=== PATIENT | female | born 1945 | race Caucasian/White ===

== ENCOUNTER 2017-06-10 11:39 | Observation (INO) | payer MEDICARE ==
[~2017-06-10 11:39] MED LIST: ISOVUE-370 76%-LOCM 1 ML ONE
[2017-06-10 12:22] LABS: #Eosinphils 0.1 thou/uL (0.0-0.7); #Monocytes 0.7 thou/uL (0.11-0.59); #Neutrophils 3.2 thou/uL (1.40-6.50); %Basophils 0.9 % (0.0-1.0); %Eosinophils 1.7 % (0.0-10.0); %Lymphocytes 19.7 % (21.0-51.0); %Monocytes 13.5 % (0.0-10.0); Hematocrit 45.6 % (36.0-47.0); Red Blood Cell (RBC) Count 4.38 mill/uL (4.20-5.40)
[2017-06-10 12:47] LABS: ALT (SGPT) 21 U/L (8-55); AST (SGOT) 27 U/L (5-34); Alkaline Phosphatase 88 U/L (40-150); Anion Gap 17 mmol/L (10-20); BUN (Urea Nitrogen) 4 mg/dL (9.8-20.1); Bilirubin, Total 0.6 mg/dL (0.2-1.2); CK (CPK) 46 U/L (29-168); Calc. Creatinine Clearance 0 mL/min (70-130); Calcium 9.7 mg/dL (7.8-10.44); Carbon Dioxide 24 mmol/L (23-31); Chloride 98 mmol/L (98-107); Estimated GFR-MDRD Greater than 90; Globulin 3.7 g/dL (2.4-3.5); Lipase 25 U/L (8-78); Protein, Total 8.1 g/dL (6.0-8.3)
[2017-06-10 12:51] LABS: Troponin I Less than 0.010 ng/mL (< 0.028)
--- NOTE | 2017-06-10 14:10 | RAD ---
AP VIEW CHEST HISTORY: Chest pain. FINDINGS: AP view of the chest obtained on 06/10/2017. Comparison study is not available. AP view chest demonstrates the lungs to be well-aerated. No evidence of active intrathoracic diseas e seen. No evidence of effusions, pneumonia, or pneumothorax seen. IMPRESSION: Unremarkable AP view of the chest. POS: [facility]
--- NOTE | 2017-06-10 14:56 | HP ---
PRIMARY CARE PHYSICIAN: Vero Page M.D. REASON FOR ADMISSION: Chest pain. HISTORY OF PRESENT ILLNESS: A 71-year-old female with a history of tobacco abuse disorder as well as alcohol abuse, who came to emergency room for evaluation of chest pain. Patient reports that this morning around 10 she was watching grandson playing football; at that time, she was experiencing right- sided chest pain; and subsequently that pain moved to left side which was worse with deep breathing and movement. Her intensity of pain was four 4/10. She denies any arm pain. She denies any associated shortness of breath. She denies any dizziness, syncope, or palpitations. She denies any relation of chest pain with activity or food. She denies any burping. She denies any epigastric pain. She denies any trauma. She was feeling sore on her chest when she arrived to emergency room. Patient reports that on she took a flu shot as well as pneumonia shot and Monday, she was feeling flu-like illness with sore all over her body, muscle pain and feverish feeling, but that improved by the end of the day; and today, she experienced these symptoms and she was worried about it and decided to come to the emergency room for evaluation. She denies any fever. She denies any chills. She denies any nausea, vomiting, diaphoresis. She denies any cough. She denies any hemoptysis. She denies any lower extremity cramps or edema or calf tenderness. She denies any UTI symptoms. She denies any constipation, diarrhea, melena or hematochezia. She denies any weight loss. REVIEW OF SYSTEMS: Please see my HPI for particulate positive and negative. All other review of systems reviewed and negative except as mentioned in the HPI. Constitutional: Weight loss or gain, ability to conduct usual activities. Skin: Rash, itching. Eyes: Double vision, pain. ENT/Mouth: Nose bleeding, neck stiffness, pain, tenderness. Cardiovascular: Palpitations, dyspnea on exertion, orthopnea. Respiratory: Shortness of breath, wheezing, cough, hemoptysis, fever or night sweats. Gastrointestinal: Poor appetite, abdominal pain, heartburn, nausea, vomiting, constipation, or diarrhea. Genitourinary: Urgency, frequency, dysuria, nocturia. Musculoskeletal: Pain, swelling. Neurologic/Psychiatric: Anxiety, depression. Allergy/Immunologic: Skin rash, bleeding tendency. PAST MEDICAL HISTORY: History of colon cancer treated with surgery. PAST SURGICAL HISTORY: Colon resection, MediPort placement for chemotherapy. FAMILY HISTORY: Patient's brother from acute dyspnea, but exact etiology was not able to be identified. No family history of cancer, stroke or coronary artery disease. ADDITIONAL INFORMATION: The patient was hypertensive in the emergency room, but she reports that she had a log of blood pressure record at her home and she saw primary care physician and everything was fine. She reports that whenever she goes to doctor, her blood pressure gets high. SOCIAL HISTORY: Patient is smoking about 1 to 1-1/2 pack per day for the last several years. She also drinks 6 beers every day basis. She denies any other illicit drug abuse. She is retired. PAST PSYCHIATRIC HISTORY: Anxiety disorder. CURRENT HOME MEDICATIONS: The patient is only taking aspirin 81 mg p.o. daily. ALLERGIES: No known drug allergies. EMERGENCY ROOM COURSE: Patient has received aspirin 162 mg. PHYSICAL EXAMINATION: VITAL SIGNS: On arrival, blood pressure 188/80, pulse 80, respiratory rate 18, temperature 98.3, saturation 96% on room air, weight 68.04 kilograms. GENERAL: Patient is currently alert, awake, in no obvious acute distress, hypertensive. HEENT: Head, normocephalic, atraumatic. Eyes: Pupils round, reactive to light. Extraocular muscle intact. ENT: Oropharynx within normal limits. Moist mucous membranes. No oral lesions. No pharyngeal erythema. No exudate. NECK: Supple. Range of motion is normal. No meningeal signs of irritation. LUNGS: Clear to auscultation without any rhonchi or rales. CARDIAC: S1, S2 regular without any murmur. ABDOMEN: Soft, bowel sounds present, nontender, nondistended. No organomegaly. No mass. No suprapubic tenderness. BACK: Unremarkable, no CVA tenderness. EXTREMITIES: Upper extremity passive movement of all joints are normal. Lower extremities: No edema. No calf tenderness. SKIN: No skin rash. HEMATOLOGICAL: No lymphadenopathy. NEUROLOGIC: Nonfocal examination. The patient moves all 4 limbs. Plantar bilateral flexor. PSYCHIATRIC: Normal affect. SIGNIFICANT LABS: 1. CBC: WBC 5.0, hemoglobin 15.4, MCV 104, platelet 227,000. D-dimer 0.72. 2. BMP: Sodium 135, potassium 3.7, chloride 98, carbon dioxide 24, BUN 4, creatinine 0.64, glucose 90, calcium 9.7. LFT: AST 27, ALT 21, alkaline phosphatase 88, albumin 4.4, lipase 25, CK 46, CK-MB 0.9, troponin I less than 0.010. EKG based on my review, normal sinus rhythm, premature ventricular complexes. ASSESSMENT AND PLAN: 1. Acute chest pain. Patient has predominantly right and left-sided upper chest wall pain which is little bit pleuritic in nature and she has elevated D- dimer. At this point, we will do CT angio to rule out thromboembolic disorder. We will do serial cardiac enzymes x3. We will check lipid profile for risk stratification as patient has new hypertension and smoking history, we will need to rule out cardiac etiology as well. Tomorrow, we will perform exercise Cardiolite stress test for diagnostic reason. Meanwhile, we will continue with nitropatch q.8 hourly, aspirin 325 mg p.o. daily. We will monitor patient's blood pressure very closely and monitor on telemetry floor. 2. Hypertension. This patient does not have any previous history of hypertension, but currently blood pressure runs high, so we will continue nitropatch q.8 hourly. We will monitor patient's blood pressure while in hospital and if needed before discharge, will consider starting a low dose of antihypertensive medication and follow up with primary care physician. 3. Macrocytosis likely due to alcohol abuse. We will start folic acid, thiamine, and vitamin B12 while in hospital. 4. Tobacco abuse disorder. Smoking cessation counseling given. Healthy lifestyle measures discussed with the patient. We will offer nicotine patch while in hospital if needed. 5. Alcohol abuse. Patient is given counseling to avoid alcohol abuse. We will continue with folic acid and thiamine while in hospital. 6. History of colon cancer, currently under remission. 7. Deep venous thrombosis prophylaxis not needed because we are expecting discharge in 24 hours. 8. Gastrointestinal prophylaxis, Pepcid 20 mg p.o. b.i.d. 9. Code status: The patient is FULL CODE. Patient's is surrogate decision maker. Disposition plan based on clinical course. Plan of care discussed with the patient and family member at bedside. ROSANNA
[2017-06-10] MEDS ORDERED: Acetaminophen 325 MG TAB PO PRN ×2 (15:53→16:09)
[2017-06-10] MEDS ORDERED: Senokot 8.6 MG TAB PO PRN (16:09)
[2017-06-10] MEDS ORDERED: Sodium Chloride 0.65% Nasal 44 ML BOT EA NARE PRN (16:09)
[2017-06-10] MEDS ORDERED: Eucerin (Mineral Oil/Petrolatum,White) 30 gm Jar TOP PRN (16:09)
[2017-06-10] MEDS ORDERED: Loratadine 10 MG TAB PO PRN (16:09)
[2017-06-10] MEDS ORDERED: Mag-Al 1200 mg/1200 mg/30 ML UDCUP PO PRN (16:09)
[2017-06-10] MEDS ORDERED: Milk Of Magnesia 30 ML UDCUP PO PRN (16:09)
[2017-06-10] MEDS ORDERED: HYDROcodone/Acetaminophen 5/325 mg Tablet PO PRN (16:09)
[2017-06-10] MEDS ORDERED: Artificial Tears 18 DROP/0.9 ML EA EYE PRN (16:09)
[2017-06-10] MEDS ORDERED: Zolpidem Tartrate 5 MG TAB PO PRN (16:09)
[2017-06-10] MEDS ORDERED: Nitroglycerin 0.4 MG TAB (25 Tab Bottle) SL PRN (16:09)
[2017-06-10] MEDS ORDERED: Ondansetron ODT 4 MG TAB PO PRN (16:09)
[2017-06-10] MEDS ORDERED: Loperamide HCl 2 MG CAP PO PRN (16:09)
[2017-06-10] MEDS ORDERED: Ondansetron HCl/PF 4 MG/2 ML Vial IVP PRN (16:09)
[2017-06-10] MEDS ORDERED: Diabetic Tussin 200 MG/10 ML UDCUP PO PRN (16:09)
[2017-06-10] MEDS ORDERED: Benzonatate 100 MG CAP PO PRN (16:09)
[2017-06-10 16:12] VITALS: BMI 27.3
[2017-06-10 16:15] LABS: Troponin I Less than 0.010 ng/mL (< 0.028)
--- NOTE | 2017-06-10 16:33 | CT ---
CT PULMONARY ANGIOGRAM 06/10/17 HISTORY: Chest pain. Contrast enhanced CTA of the chest is performed. 2D and 3D reconstructed images performed on an [employer] 3D workstation. The lung parenchyma is unremarkable. Coronary artery calcification is seen. No evidence of mediastin al lymphadenopathy seen. No evidence of significant axillary lymphadenopathy seen. No evidence of ao rtic dissection seen. Calcification of the aorta seen. No evidence of filling defects seen in the pu lmonary arteries to suggest pulmonary emboli. IMPRESSION: Coronary artery calcifications. POS: [facility]
[2017-06-10 18:48] LABS: Troponin I Less than 0.010 ng/mL (< 0.028)
[2017-06-10] MEDS: Nitroglycerin 2% Ointment 1 INCH/1 GM Packet TOP SCH (20:06)
[2017-06-10] MEDS: Famotidine 20 MG TAB PO SCH (20:52)
[2017-06-10] MEDS ORDERED: Nicotine 21 MG PATCH TD SCH (21:00)
[2017-06-11] MEDS: Nitroglycerin 2% Ointment 1 INCH/1 GM Packet TOP SCH ×2 (06:06→12:22)
[2017-06-11] MEDS ORDERED: Aspirin 325 MG TAB PO SCH (09:00)
[2017-06-11] MEDS ORDERED: Folic Acid 1 MG TAB PO SCH (09:00)
[2017-06-11] MEDS ORDERED: Cyanocobalamin (Vitamin B-12) 1,000 MCG TAB PO SCH (09:00)
[2017-06-11] MEDS: Famotidine 20 MG TAB PO SCH (09:03)
[2017-06-11 11:40] VITALS: BP 142/72; TEMP 98.3
--- NOTE | 2017-06-11 13:07 | NM ---
MYOCARDIAL PERFUSION STUDY: DATE: 06/11/17. HISTORY: Chest pain. History of smoking. RADIOPHARMACEUTICALS: 28.4 mCi Technetium 99m sestamibi, IV at stress, and 9,2 mCi Technetium 99m sestamibi, IV at rest. This examination was performed as an exercise stress myocardial perfusion study following the routin e Rashel protocol. Resting heart rate is 69 b.p.m. with maximal heart rate achieved up to 173 b.p.m. This represents 115% of the maximal predictive effective heart rate. FINDINGS: No significant reversible defect is seen between the stress and resting acquisitions. Quantitative analysis also shows no significant reversible defect. The gated images show normal ventricular wall motion and wall thickening. The calculated left ventricular ejection fraction is 75%. IMPRESSION: 1. Normal myocardial perfusion study without evidence of a reversible defect seen to suggest ischem ia. 2. Normal left ventricular function with normal left ventricular ejection fraction of 75%. POS: [facility]
--- NOTE | 2017-06-12 00:08 | DIS ---
DATE OF ADMISSION: 06/10/2017 DATE OF DISCHARGE: 06/11/2017 PRIMARY CARE PHYSICIAN: Dr. Vero Page. DISCHARGE DIAGNOSIS: Chest pain, resolved. CONDITION OF PATIENT AT THE TIME OF DISCHARGE: Stable. I assessed Ms. Muñiz on the day of discharge. She denies any chest pain. PHYSICAL EXAMINATION: VITAL SIGNS: Stable. CARDIOVASCULAR: S1 and S2 are heard, regular. LUNGS: Clear to auscultation bilaterally. HOSPITAL COURSE: Ms. Muñiz is a pleasant 71-year-old lady who was admitted to [facility] for chest pain. She had CT angiogram of the chest, which did not reveal any pulmonary emboli or evidence of aortic dissection. She had calcification of aorta. She also had coronary ar mery calcifications. She had a nuclear stress test on 06/11, which was normal study without evidenc e of reversible defect. She had normal left ventricular function, with left ventricular ejection fr action of 75%. She has been advised to stop tobacco use and to avoid alcohol abuse. She is advised to follow up wi th her primary care physician in 3-5 days. DISCHARGE MEDICATIONS: Include aspirin 81 mg daily, vitamin B12 of 1000 mcg daily, Nicoderm patch 2 1 mg daily, thiamine 100 mg daily. Many thanks for allowing me to participate in your patient's care. Please feel free to contact me w ith any questions or concerns. During this hospitalization, she had triglyceride level 87, cholesterol 175, LDL 118 and HDL 40. On 06/10, she had a sodium of 135, creatinine 0.64, normal potassium, white count 5000, hemoglobin 15. 4 and platelet count 227. MCV was elevated at 104.0. DISCHARGE DESTINATION: Home.
--- NOTE | 2017-06-16 13:45 | STRESS ---
Acquisition Time: 2017-06-11 09:44:16 Total Exercise Time: 00:04:00 Test Indications: CHEST PAIN Medications: Protocol: ROVERTO Max HR: 173 BPM 115% of Pred: 150 BPM Max BP: 166/078 mmHG Max Work Load: 4.6 METS RESTING ECG: NORMAL SINUS RHYTHM AT 69 BPM WITH RARE PVC'S NOTED. SYMPTOMS:NONE NORMAL BP RESPONSE ECTOPY: RARE PVC'S ECG STRESS: 1MM DOWNSLOPING ST DEPRESSION INTERPRETATION: NEGATIVE GXT/ AWAIT NUCLEAR IMAGES FOR DEFINITIVE DIAGNOSIS Confirmed by LACEY WILLOUGHBY M.D. ([id number]) on 06/16/2017 1:44:54 PM Referred By: MD Kirit FIGUEROA Confirmed By:LACEY WILLOUGHBY M.D.
--- NOTE | 2017-06-16 14:54 | EKG ---
Test Reason : Blood Pressure : / mmHG Vent. Rate : 080 BPM Atrial Rate : 080 BPM P-R Int : 122 ms QRS Dur : 074 ms QT Int : 346 ms P-R-T Axes : 048 041 052 degrees QTc Int : 399 ms Sinus rhythm with occasional Premature ventricular complexes Possible Left atrial enlargement Borderline ECG Confirmed by KOKO ANTUNEZ D.O. ([id number]), design editor CHRISTOFER CUEVA ([id number] on 06/16/2017 2:54:47 PM Referred By: Confirmed By:KOKO ANTUNEZ D.O.
== END 2017-06-11 14:56 | disposition home or self-care (01) ==
LOC: ERS 11:39 → 2SW 16:02
PROVIDERS: ADMIT Internal Medicine; ATTEND Internal Medicine
DX: R07.9 Chest pain, unspecified (principal); I25.10 Atherosclerotic heart disease of native coronary artery without angina pectoris; F17.210 Nicotine dependence, cigarettes, uncomplicated; F41.9 Anxiety disorder, unspecified; Z85.038 Personal history of other malignant neoplasm of large intestine; Z90.49 Acquired absence of other specified parts of digestive tract; Z98.890 Other specified postprocedural states; Z79.82 Long term (current) use of aspirin
CPT/HCPCS: 71010; 71275; 78452; 80053; 80061; 82550; 82553; 83690; 84484 ×2; 85025; 85379; 93005; 93017; 99285; A9500; G0378; 36415

== ENCOUNTER 2017-10-31 09:34 | Outpatient (CLI) | payer MEDICARE ==
--- NOTE | 2017-11-13 16:17 | MMO ---
BILATERAL SCREENING MAMMOGRAM: Date: 10/31/17 HISTORY: Screening. COMPARISON: Mammogram from 2015. TECHNIQUE: Bilateral screening CC and MLO mammograms. This patient's mammogram was interpreted with the assistance of computer-aided detection. FINDINGS: There are scattered fibroglandular densities. No suspicious mass, microcalcifications, or architectur al distortion. No significant change. IMPRESSION: BIRADS 1: Negative Continued annual mammographic screening is recommended. POS: [facility]
== END 2017-10-31 09:35 | disposition home or self-care (01) ==
LOC: SCSMAMMO 09:34
PROVIDERS: ATTEND Family Medicine
DX: Z12.31 Encounter for screening mammogram for malignant neoplasm of breast (principal)
CPT/HCPCS: 77067

== ENCOUNTER 2018-12-28 09:02 | Outpatient (CLI) | payer MEDICARE ==
[2018-12-28 09:44] LABS: Estimated GFR-MDRD - POC Greater than 90
--- NOTE | 2018-12-28 10:23 | CT ---
CT CHEST WITH CONTRAST: HISTORY: Lung nodules. Colon cancer. COMPARISON: CT chest 06/10/2017. FINDINGS: Mild centrilobular emphysema. This is greatest in the lung apices. Faint area of ground-glass within the posterior segment left upper lobe confined to the secondary pul monary lobule on axial images 18 and 19 measuring up to 7 mm. No pneumothorax. No effusion. Thyroid is unremarkable. 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 No mediastinal adenopathy. No pericardial effusion. Limited evaluation of the upper abdo men is unremarkable. Visualized portions of the adrenal glands are unremarkable. Visualized portions of the clavicles are normal. No displaced rib fracture. No suspicious osteolyti c or osteoblastic lesions. No spine compression fracture. Focal lucency of left T12 vertebral body with some maintained internal trabeculation, likely hemangio ma as this is unchanged. IMPRESSION: 1. A 7 mm ground-glass nodule posterior segment left upper lobe axial images [address] at 6-12 months is recommended to confirm persistence. 2. No evidence of metastatic disease within the chest. 3. Mild centrilobular emphysema of lung apices. POS: [facility]
[2018-12-28] MEDS ORDERED: Iopamidol 370 76% 100 ML VIAL ONE (15:04)
== END 2018-12-28 09:03 | disposition home or self-care (01) ==
LOC: CT 09:02
PROVIDERS: ATTEND Internal Medicine Hematology & Oncology
DX: C18.7 Malignant neoplasm of sigmoid colon (principal); R91.1 Solitary pulmonary nodule; R63.4 Abnormal weight loss; J43.2 Centrilobular emphysema
CPT/HCPCS: 71260; 82565

== ENCOUNTER 2020-01-10 09:17 | Outpatient (CLI) | payer MEDICARE ==
[2020-01-10 09:43] LABS: Estimated GFR-MDRD - POC Greater than 90
--- NOTE | 2020-01-10 10:12 | CT ---
CT CHEST WITH CONTRAST CLINICAL INDICATION: Malignant neoplasm of sigmoid colon. Follow-up pulmonary nodule. COMPARISON: 12/28/2018 FINDINGS: Aorta: Vascular calcifications are seen in the thoracic aorta with scattered atherosclerotic plaque. Incidental note is again made of an aberrant right subclavian artery. Lungs: Previously seen groundglass nodule abutting the superior aspect of the left major fissure in t he left upper lobe is no longer visualized on this examination. A stable punctate 2 to 3 mm pulmonary nodule is seen in the right lower lobe (image [id number], series 3). No additional discrete pulmona ry nodule or mass is seen in the lungs bilaterally. No pleural effusion is seen. Minimal emphysematous changes are seen in the upper lobes. Mediastinum: No enlarged lymph nodes are seen by CT size criteria. Vascular calcifications are seen i n the coronary arteries. Thyroid gland: Normal CT appearance. Osseous structures: Degenerative changes are seen in the spine. Lucency within the T12 vertebral body is again seen again likely attributable to a hemangioma unchanged dating back to 2016. No new suspicious lytic or sclerotic osseous lesions are seen. Chest wall: No abnormality visualized. Upper abdomen: Within normal limits for phase of imaging. IMPRESSION: 1. No acute findings are seen in the chest. 2. Resolution of the groundglass nodule left upper lobe abutting the major fissure. 3. Mild emphysematous changes.
== END 2020-01-10 09:18 | disposition home or self-care (01) ==
LOC: SCSCT 09:17
PROVIDERS: ATTEND Internal Medicine Hematology & Oncology
DX: C18.7 Malignant neoplasm of sigmoid colon (principal); R91.8 Other nonspecific abnormal finding of lung field
CPT/HCPCS: 71260; 82565

== ENCOUNTER 2021-01-11 13:26 | Outpatient (CLI) | payer MEDICARE | END 2021-01-11 13:27 | disposition home or self-care (01) | LOC: BICCT 13:26 | PROVIDERS: ATTEND Internal Medicine Hematology & Oncology | DX: R91.8 Other nonspecific abnormal finding of lung field (principal); C18.7 Malignant neoplasm of sigmoid colon | CPT/HCPCS: 71250 ==

== ENCOUNTER 2022-01-06 09:00 | Outpatient (CLI) | payer MEDICARE | END 2022-01-06 09:01 | disposition home or self-care (01) | LOC: BICCT 09:00 | PROVIDERS: ATTEND Internal Medicine Hematology & Oncology | DX: R91.8 Other nonspecific abnormal finding of lung field (principal); K80.20 Calculus of gallbladder without cholecystitis without obstruction | CPT/HCPCS: 71250 ==